=== PATIENT | female | born 1990 ===

== ENCOUNTER 2019-03-22 00:23 | Emergency (ER) | payer SELFPAY ==
[2019-03-22] MEDS ORDERED: IBUPROFEN 400 MG TAB ONE (01:41)
--- NOTE | 2019-03-22 02:18 | ER ---
Nurse's Notes [facility] Name: Teodora Drummond Age: 28 yrs Sex: Female : 1990 Arrival Date: 03/22/2019 Time: 00:29 Bed 19 Private MD: Diagnosis: Pain in left foot Presentation: 03/22 00:50 Presenting complaint: Patient states: that she has been having pain to her feet for a fc long time. But on Monday after work she noted that pain to her left outer foot was worse and then by Mon she was unable to walk on it. She has taken no medication but has iced, rested and elevated the foot. Transition of care: patient was not received from another setting of care. Onset of symptoms was March 18, 2019. Risk Assessment: Do you want to hurt yourself or someone else? Patient reports no desire to harm self or others. Initial Sepsis Screen: Does the patient meet any 2 criteria? HR > 90 bpm. Yes Does the patient have a suspected source of infection? No. Patient's initial sepsis screen is negative. Care prior to arrival: None. 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 - Social history:: Smoking status: Patient uses tobacco products, smokes one-half pack cigarettes per day, Patient uses alcohol, occasionally. Patient/guardian denies using street drugs. - Ebola Screening: : Patient negative for fever greater than or equal to 101.5 degrees Fahrenheit, and additional compatible Ebola Virus Disease symptoms Patient denies exposure to infectious person Patient denies travel to an Ebola-affected area in the 21 days before illness onset. Screenin:50 Abuse screen: Denies threats or abuse. Nutritional screening: No deficits noted. Tuberculosis screening: No symptoms or risk factors identified. Fall Risk None identified. Assessment: 01:10 General: Appears in no apparent distress. comfortable, Behavior is calm, cooperative, jb4 appropriate for age. Pain: Complains of pain in anterior aspect of left ankle Pain does not radiate. Pain currently is 8 out of 10 on a pain scale. Quality of pain is described as throbbing, Pain began 2-3 days ago. Neuro: Level of Consciousness is awake, alert, obeys commands, Oriented to person, place, time, situation. Cardiovascular: Patient's skin is warm and dry. Respiratory: Airway is patent Respiratory effort is even, unlabored, Respiratory pattern is regular, symmetrical. GI: No deficits noted. No signs and/or symptoms were reported involving the gastrointestinal system. : No deficits noted. No signs and/or symptoms were reported regarding the genitourinary system. EENT: No deficits noted. No signs and/or symptoms were reported regarding the EENT system. Derm: Skin is intact, Skin is dry, Skin is normal, Skin temperature is warm. Musculoskeletal: Circulation, motion, and sensation intact. Range of motion: intact in all extremities. 02:08 Reassessment: Patient appears in no apparent distress at this time. Patient and/or jb4 family updated on plan of care and expected duration. Pain level reassessed. Patient is alert, oriented x 3, equal unlabored respirations, skin warm/dry/pink. Vital Signs: 00:50 BP 113 / 83; Pulse 99; Resp 18; Temp 98.1(O); Pulse Ox 99% on R/A; Weight 124.74 kg (R); Height 5 ft. 4 in. (162.56 cm) (R); Pain 8/10; 01:30 BP 109 / 88; Pulse 98; Resp 16; Pulse Ox 98% on R/A; jb4 00:50 Body Mass Index 47.20 (124.74 kg, 162.56 cm) ED Course: 00:29 Patient arrived in ED. cl3 00:50 Arm band placed on Patient placed in an exam room, on a stretcher. fc 00:50 Patient has correct armband on for positive identification. Bed in low position. Call light in reach. Pulse ox on. NIBP on. 00:50 No provider procedures requiring assistance completed. fc 00:57 Saurabh Nayak RN is Primary Nurse. jb4 00:59 Deion Flores PA is PHCP. jr8 00:59 Ji Londono MD is Attending Physician. jr8 01:02 Triage completed. 02:10 Patient did not have IV access during this emergency room visit. jb4 Administered Medications: 01:46 Drug: Ibuprofen 800 mg Route: PO; jb4 02:10 Follow up: Response: No adverse reaction; Pain is decreased jb4 Outcome: 01:30 Discharge ordered by . jr8 02:10 Discharged to home ambulatory, with family. jb4 02:10 Condition: stable 02:10 Discharge instructions given to patient, family, Instructed on discharge instructions, follow up and referral plans. medication usage, Demonstrated understanding of instructions, follow-up care, medications, Prescriptions given X 1. 02:11 Patient left the ED. jb4 Signatures: Linda Smyth RN RN Deion Flores PA PA jr8 Saurabh Nayak RN RN jb4 Henrik Mendoza cl3
--- NOTE | 2019-03-22 02:21 | EDPHYS ---
Physician Documentation [facility] Name: Teodora Drummond Age: 28 yrs Sex: Female : 1990 Arrival Date: 03/22/2019 Time: 00:29 Bed 19 Private MD: ED Physician Ji Londono HPI: 03/22 01:23 This 28 yrs old Female presents to ER via Ambulatory with complaints of Foot Injury. jr8 01:23 The patient presents with decreased range of motion, pain, swelling, tenderness. The jr8 complaints affect the lateral aspect of left foot. Onset: The symptoms/episode began/occurred acutely, 2 day(s) ago. Modifying factors: The symptoms are alleviated by nothing. the symptoms are aggravated by movement, weight bearing. Associated signs and symptoms: The patient has no apparent associated signs or symptoms. Severity of symptoms: At their worst the symptoms were mild, in the emergency department the symptoms are unchanged. The patient has not experienced similar symptoms in the past. The patient has not recently seen a physician. 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 Stated that her lateral left foot started to hurt. Pain has been increasing over the past couple of days. Has tried heat, ice, and soaking without relief. Denies direct trauma to foot . 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 - Social history:: Smoking status: Patient uses tobacco products, smokes one-half pack cigarettes per day, Patient uses alcohol, occasionally. Patient/guardian denies using street drugs. - Ebola Screening: : Patient negative for fever greater than or equal to 101.5 degrees Fahrenheit, and additional compatible Ebola Virus Disease symptoms Patient denies exposure to infectious person Patient denies travel to an Ebola-affected area in the 21 days before illness onset. ROS: 01:23 Eyes: Negative for injury, pain, redness, and discharge, ENT: Negative for injury, jr8 pain, and discharge, Neck: Negative for injury, pain, and swelling, Cardiovascular: Negative for chest pain, palpitations, and edema, Respiratory: Negative for shortness of breath, cough, wheezing, and pleuritic chest pain, Abdomen/GI: Negative for abdominal pain, nausea, vomiting, diarrhea, and constipation, Back: Negative for injury and pain, Skin: Negative for injury, rash, and discoloration, Neuro: Negative for headache, weakness, numbness, tingling, and seizure. 01:23 MS/extremity: Positive for pain, swelling, tenderness, of the lateral aspect of left foot. Exam: 01:23 Constitutional: This is a well developed, well nourished patient who is awake, alert, jr8 and in no acute distress. Cardiovascular: Regular rate and rhythm with a normal S1 and S2. No gallops, murmurs, or rubs. Normal PMI, no JVD. No pulse deficits. Respiratory: Lungs have equal breath sounds bilaterally, clear to auscultation and percussion. No rales, rhonchi or wheezes noted. No increased work of breathing, no retractions or nasal flaring. Skin: Warm, dry with normal turgor. Normal color with no rashes, no lesions, and no evidence of cellulitis. Neuro: Awake and alert, GCS 15, oriented to person, place, time, and situation. Cranial nerves II-XII grossly intact. Motor strength 5/5 in all extremities. Sensory grossly intact. Cerebellar exam normal. Normal gait. 01:23 Musculoskeletal/extremity: Extremities: grossly normal except: noted in the lateral aspect of left foot: pain, swelling, tenderness, lateral dorsal portion of foot over the metatarsal region of the 4th and 5th toes , ROM: intact in all extremities, limited active range of motion due to pain, in the left foot, limited passive range of motion due to pain, in the left foot, Circulation is intact in all extremities. Sensation intact. Vital Signs: 00:50 BP 113 / 83; Pulse 99; Resp 18; Temp 98.1(O); Pulse Ox 99% on R/A; Weight 124.74 kg fc (R); Height 5 ft. 4 in. (162.56 cm) (R); Pain 8/10; 01:30 BP 109 / 88; Pulse 98; Resp 16; Pulse Ox 98% on R/A; jb4 00:50 Body Mass Index 47.20 (124.74 kg, 162.56 cm) Procedures: 01:23 Splinting: Splint applied to left foot using craig wrap, applied by myself. Examined by jr8 nm, post splint application: neurovascular intact, 2+ distal pulses palpable, brisk capillary refill noted, Patient tolerated well. MDM: 00:59 Patient medically screened. jr8 01:29 Data reviewed: vital signs, nurses notes, radiologic studies, plain films. Data jr8 interpreted: Pulse oximetry: on room air is 99 %. Interpretation: normal. Test interpretation: by ED physician or midlevel provider: plain radiologic studies, No acute fracture noted. Possible old avulsive injury noted to left lateral foot. Counseling: I had a detailed discussion with the patient and/or guardian regarding: the historical points, exam findings, and any diagnostic results supporting the discharge/admit diagnosis, radiology results, the need for outpatient follow up, a orthopedic surgeon, to return to the emergency department if symptoms worsen or persist or if there are any questions or concerns that arise at home. 03/22 00:59 Order name: XRAY Foot LEFT 3 View jr8 Administered Medications: 01:46 Drug: Ibuprofen 800 mg Route: PO; jb4 02:10 Follow up: Response: No adverse reaction; Pain is decreased jb4 Disposition: 03/22/19 01:30 Discharged to Home. Impression: Pain in left foot. - Condition is Stable. - Discharge Instructions: Musculoskeletal Pain, Foot Pain. - Prescriptions for Mobic 15 mg Oral tablet - take 1 tablet by ORAL route once daily; 20 tablet. - Work release form, Medication Reconciliation Form, Thank You Letter, Antibiotic Education, Prescription Opioid Use form. - Follow up: Private Physician; When: 1 week; Reason: Recheck today's complaints, Continuance of care, Re-evaluation by your physician. - Problem is new. - Symptoms have improved. Signatures: Dispatcher [employer] EDMS Linda Smyth RN RN Deion Flores PA PA jr8 Saurabh Nayak RN RN jb4 Corrections: (The following items were deleted from the chart) 02:11 01:30 03/22/2019 01:30 Discharged to Home. Impression: Pain in left foot. Condition is jb4 Stable. Forms are Medication Reconciliation Form, Thank You Letter, Antibiotic Education, Prescription Opioid Use. Follow up: Private Physician; When: 1 week; Reason: Recheck today's complaints, Continuance of care, Re-evaluation by your physician. Problem is new. Symptoms have improved. jr8
--- NOTE | 2019-03-22 08:48 | RAD REPORT ---
EXAM DESCRIPTION: RAD - Foot Left 3 View - 03/22/2019 1:20 am CLINICAL HISTORY: PAIN COMPARISON: No comparisons FINDINGS: No fracture or dislocation seen.
== END 2019-03-22 02:11 | disposition home or self-care (01) ==
LOC: ER 00:23
DX: M79.672 Pain in left foot (principal); F17.210 Nicotine dependence, cigarettes, uncomplicated; Z88.0 Allergy status to penicillin; Z91.040 Latex allergy status
CPT/HCPCS: 99283

== ENCOUNTER 2019-04-07 14:17 | Emergency (ER) | payer SELFPAY ==
--- OUTSIDE RECORDS SUMMARY | 2019-04-07 14:18 | XMS REPORT ---
:1990 Author Organization [facility] Address [address] [place] [address] Dr. Fair[address] [place] [id number] Care Team Providers Name Role Phone Unavailable Unavailable Unavailable Problems This patient has no known problems. Allergies, Adverse Reactions, Alerts This patient has no known allergies or adverse reactions. Medications This patient has no known medications.
--- NOTE | 2019-04-07 15:28 | RAD REPORT ---
EXAM DESCRIPTION: RAD - Chest Pa And Lat (2 Views) - 04/07/2019 3:14 pm CLINICAL HISTORY: Chest pain;Cough Chest pain. COMPARISON: No comparisons FINDINGS: The lungs are clear. The heart is normal in size. No displaced fractures. IMPRESSION: No acute or concerning finding suspected.
--- NOTE | 2019-04-07 16:47 | ER ---
Nurse's Notes [facility] Name: Teodora Drummond Age: 28 yrs Sex: Female : 1990 Arrival Date: 04/07/2019 Time: 14:17 Bed 27 Private MD: Diagnosis: Acute upper respiratory infection, unspecified Presentation: 04/07 14:33 Presenting complaint: Patient states: chest pain, cough, SOB x 2 days. Transition of sv care: patient was not received from another setting of care. Onset of symptoms was March 2019. Risk Assessment: Do you want to hurt yourself or someone else? Patient reports no desire to harm self or others. Care prior to arrival: None. 14:33 Method Of Arrival: Ambulatory sv 14:33 Acuity: SUKH 3 sv 15:30 Initial Sepsis Screen: Does the patient meet any 2 criteria? No. Patient's initial aa5 sepsis screen is negative. Does the patient have a suspected source of infection? No. Patient's initial sepsis screen is negative. Triage Assessment: 14:33 General: Appears in no apparent distress. uncomfortable, Behavior is calm, cooperative, sv appropriate for age. Pain: Complains of pain in chest. Neuro: Level of Consciousness is awake, alert, obeys commands, Gait is steady. Respiratory: Reports shortness of breath cough that is non-productive, Respiratory effort is even, unlabored, Respiratory pattern is regular, symmetrical, the patient has mild shortness of breath. Historical: - Allergies: 14:33 Latex, Natural Rubber; sv 14:33 PENICILLINS; sv - PMHx: 15:30 None; aa5 - PSHx: 14:33 Cholecystectomy; Cyst on tailbone; sv - Ebola Screening: : No symptoms or risks identified at this time. Screenin:30 Abuse screen: Denies threats or abuse. Nutritional screening: No deficits noted. aa5 Tuberculosis screening: No symptoms or risk factors identified. Fall Risk None identified. Assessment: 15:30 General: Appears comfortable, Behavior is calm, cooperative. Pain: Complains of pain in aa5 mid-sternal area Pain does not radiate. Pain currently is 0 out of 10 on a pain scale. Quality of pain is described as pressure, Pain began 2-3 days ago. Pt reports chest pain only with cough Is intermittent. Neuro: Level of Consciousness is awake, alert, obeys commands, Oriented to person, place, time, situation. Cardiovascular: Heart tones S1 S2 present Rhythm is regular. Respiratory: Reports shortness of breath cough that is dry, Airway is patent Respiratory effort is even, unlabored, Respiratory pattern is regular, symmetrical, Breath sounds are clear bilaterally. the patient has mild shortness of breath. GI: Abdomen is obese, Bowel sounds present X 4 quads. Abd is soft and non tender X 4 quads. : No signs and/or symptoms were reported regarding the genitourinary system. EENT: No signs and/or symptoms were reported regarding the EENT system. Derm: Skin is pink, warm \T\ dry. Musculoskeletal: Range of motion: intact in all extremities. 17:00 Reassessment: Patient is alert, oriented x 3, equal unlabored respirations, skin aa5 warm/dry/pink. Vital Signs: 14:33 BP 121 / 81; Pulse 90; Resp 18; Temp 98.4; Pulse Ox 100% ; Weight 117.93 kg; Height 5 sv ft. 4 in. (162.56 cm); Pain 5/10; 14:33 Body Mass Index 44.63 (117.93 kg, 162.56 cm) sv ED Course: 14:17 Patient arrived in ED. rg4 14:33 Triage completed. sv 14:34 Arm band placed on. sv 15:30 Patient has correct armband on for positive identification. aa5 15:30 No provider procedures requiring assistance completed. aa5 15:33 Brigette Bullard RN is Primary Nurse. aa5 15:36 [facility]. jr8 15:36 Chandana Nunez MD is Attending Physician. jr8 17:00 Patient did not have IV access during this emergency room visit. aa5 Administered Medications: No medications were administered Outcome: 16:46 Discharge ordered by . jr8 17:00 Discharged to home ambulatory. aa5 17:00 Condition: stable 17:00 Discharge instructions given to patient, Instructed on discharge instructions, follow up and referral plans. medication usage, Demonstrated understanding of instructions, follow-up care, medications, Prescriptions given X 2. 17:02 Patient left the ED. aa5 Signatures: Ariane Rene RN RN Brigette Bullard RN RN aa5 Deion Flores PA PA jr8 Garcia Barbara rg4
--- NOTE | 2019-04-07 16:47 | EDPHYS ---
Physician Documentation [facility] Name: Teodora Drummond Age: 28 yrs Sex: Female : 1990 Arrival Date: 04/07/2019 Time: 14:17 Bed 27 Private MD: ED Physician Chandnaa uNnez HPI: 04/07 16:41 This 28 yrs old Female presents to ER via Ambulatory with complaints of Shortness Of jr8 Breath, Chest Pain. 16:41 The patient has shortness of breath at rest. Onset: The symptoms/episode began/occurred jr8 acutely, 2 day(s) ago. Duration: The symptoms are continuous. The patient's shortness of breath is aggravated by coughing. Associated signs and symptoms: The patient has no apparent associated signs or symptoms. Severity of symptoms: At their worst the symptoms were mild in the emergency department the symptoms are unchanged. The patient has not experienced similar symptoms in the past. The patient has not recently seen a physician. Stated that other family members have been sick recently. Wanted to make sure she did not have pneumonia . Historical: - Allergies: 14:33 Latex, Natural Rubber; sv 14:33 PENICILLINS; sv - PMHx: 15:30 None; aa5 - PSHx: 14:33 Cholecystectomy; Cyst on tailbone; sv - Ebola Screening: : No symptoms or risks identified at this time. ROS: 16:41 Eyes: Negative for injury, pain, redness, and discharge, ENT: Negative for injury, jr8 pain, and discharge, Neck: Negative for injury, pain, and swelling, Abdomen/GI: Negative for abdominal pain, nausea, vomiting, diarrhea, and constipation, Back: Negative for injury and pain, MS/Extremity: Negative for injury and deformity, Skin: Negative for injury, rash, and discoloration, Neuro: Negative for headache, weakness, numbness, tingling, and seizure. 16:41 Cardiovascular: Positive for chest pain, Negative for edema, orthopnea, palpitations, paroxysmal nocturnal dyspnea. 16:41 Respiratory: Positive for cough, shortness of breath. Exam: 16:41 Eyes: Pupils equal round and reactive to light, extra-ocular motions intact. Lids and jr8 lashes normal. Conjunctiva and sclera are non-icteric and not injected. Cornea within normal limits. Periorbital areas with no swelling, redness, or edema. ENT: Nares patent. No nasal discharge, no septal abnormalities noted. Tympanic membranes are normal and external auditory canals are clear. Oropharynx with no redness, swelling, or masses, exudates, or evidence of obstruction, uvula midline. Mucous membranes moist. Neck: Trachea midline, no thyromegaly or masses palpated, and no cervical lymphadenopathy. Supple, full range of motion without nuchal rigidity, or vertebral point tenderness. No Meningismus. Cardiovascular: Regular rate and rhythm with a normal S1 and S2. No gallops, murmurs, or rubs. Normal PMI, no JVD. No pulse deficits. Respiratory: Lungs have equal breath sounds bilaterally, clear to auscultation and percussion. No rales, rhonchi or wheezes noted. No increased work of breathing, no retractions or nasal flaring. Abdomen/GI: Soft, non-tender, with normal bowel sounds. No distension or tympany. No guarding or rebound. No evidence of tenderness throughout. Back: No spinal tenderness. No costovertebral tenderness. Full range of motion. Skin: Warm, dry with normal turgor. Normal color with no rashes, no lesions, and no evidence of cellulitis. MS/ Extremity: Pulses equal, no cyanosis. Neurovascular intact. Full, normal range of motion. Neuro: Awake and alert, GCS 15, oriented to person, place, time, and situation. Cranial nerves II-XII grossly intact. Motor strength 5/5 in all extremities. Sensory grossly intact. Cerebellar exam normal. Normal gait. Vital Signs: 14:33 BP 121 / 81; Pulse 90; Resp 18; Temp 98.4; Pulse Ox 100% ; Weight 117.93 kg; Height 5 sv ft. 4 in. (162.56 cm); Pain 5/10; 14:33 Body Mass Index 44.63 (117.93 kg, 162.56 cm) sv MDM: 15:36 Patient medically screened. jr8 16:43 Data reviewed: vital signs, nurses notes, radiologic studies, plain films, and as a jr8 result, I will discharge patient. Data interpreted: Pulse oximetry: on room air is 100 %. Interpretation: normal. Counseling: I had a detailed discussion with the patient and/or guardian regarding: the historical points, exam findings, and any diagnostic results supporting the discharge/admit diagnosis, radiology results, the need for outpatient follow up, a family practitioner, to return to the emergency department if symptoms worsen or persist or if there are any questions or concerns that arise at home. 04/07 14:36 Order name: Chest Pa And Lat (2 Views) XRAY sv 04/07 15:30 Order name: RAD; Complete Time: 15:36 EDMS 04/07 14:36 Order name: EKG; Complete Time: 14:38 sv 04/07 14:36 Order name: EKG - Nurse/Tech; Complete Time: 14:36 sv Administered Medications: No medications were administered Disposition: 04/08 08:57 Co-signature as Attending Physician, Chandana Nunez MD I agree with the assessment and kdr plan of care. Disposition: 04/07/19 16:46 Discharged to Home. Impression: Acute upper respiratory infection, unspecified. - Condition is Stable. - Discharge Instructions: Upper Respiratory Infection, Adult. - Prescriptions for Prednisone 20 mg Oral Tablet - take 1 tablet by ORAL route once daily for 5 days; 5 tablet. Guaifenesin AC 10- 100 mg/5 mL Oral Liquid - take 10 milliliter by ORAL route every 4 hours As needed; 240 milliliter. - Work release form, Medication Reconciliation Form, Thank You Letter, Antibiotic Education, Prescription Opioid Use form. - Follow up: Private Physician; When: As needed; Reason: Recheck today's complaints, Continuance of care, Re-evaluation by your physician. - Problem is new. - Symptoms have improved. Signatures: Dispatcher [employer] [facility] Ariane Rene RN RN sv Rittger, Kevin, MD MD [facility] Brigette Bullard RN RN aa5 Deion Flores PA PA jr8 Corrections: (The following items were deleted from the chart) 04/07 17:02 16:46 04/07/2019 16:46 Discharged to Home. Impression: Acute upper respiratory aa5 infection, unspecified. Condition is Stable. Forms are Medication Reconciliation Form, Thank You Letter, Antibiotic Education, Prescription Opioid Use. Follow up: Private Physician; When: As needed; Reason: Recheck today's complaints, Continuance of care, Re-evaluation by your physician. Problem is new. Symptoms have improved. jr8
[2019-04-07 17:52] VITALS: BP 121/81; TEMP 98.4; O2SAT 100
--- NOTE | 2019-04-08 11:34 | EKG ---
Test Date: 2019-04-07 Test Time: 14:39:15 Nuclear Plant Equipment Operator: SANJAY MEASUREMENT RESULTS: Intervals: Rate: 92 WY: 158 QRSD: 78 QT: 350 QTc: [address]: P: 38 W[place]: 158 QRS: 22 T: 26 INTERPRETIVE STATEMENTS: Normal sinus rhythm Normal ECG No previous ECG available for comparison Electronically Signed On 04-08-19 11:31:21 CDT by Sohan Sellers
== END 2019-04-07 17:02 | disposition home or self-care (01) ==
LOC: ER 14:17
DX: J06.9 Acute upper respiratory infection, unspecified (principal); Z88.0 Allergy status to penicillin; Z91.040 Latex allergy status
CPT/HCPCS: 71046; 93005; 99282